=== PATIENT | female | born 1955 | race Caucasian/White ===

== ENCOUNTER → 2021-07-12 | Outpatient (CLI) | payer MEDICARE, OTHER ==
--- NOTE | 2021-07-12 11:14 | RAD ---
EXAM: Bilateral knees, 3 views. HISTORY: Pain. COMPARISON: None. FINDINGS: 3 views of both knees are obtained. There is severe bilateral medial compartment joint spac e narrowing with subchondral sclerosis and spurring. There is moderate bilateral lateral and patellof emoral compartment spurring. There is no fracture, dislocation or subluxation. There is trace right g reater than left knee joint fluid. There is bilateral genu varus. IMPRESSION: 1. Severe medial compartment predominant osteoarthritis of both knees with trace joint fluid and bila teral genu varus. 2. No acute osseous finding. Electronically signed by: Delfina Mcwilliams MD (07/12/2021 11:11 AM) [id number]
== END ==
LOC: DXRAD 10:28
PROVIDERS: ATTEND Physician Assistant
DX: M17.0 Bilateral primary osteoarthritis of knee (principal); M25.862 Other specified joint disorders, left knee; M25.861 Other specified joint disorders, right knee
CPT/HCPCS: 73565; 73560-50